=== PATIENT | male | born 1995 | race Caucasian/White ===

== ENCOUNTER 2023-04-24 13:35 | Outpatient (CLI) | payer BC | END 2023-04-24 13:36 | disposition home or self-care (01) | LOC: CSHMRI 13:35 | PROVIDERS: ATTEND Nurse Practitioner Family | DX: M54.14 Radiculopathy, thoracic region (principal); M54.16 Radiculopathy, lumbar region; Z98.1 Arthrodesis status | CPT/HCPCS: 72146; 72148 ==

== ENCOUNTER 2024-02-03 12:56 | Outpatient (CLI) | payer BC | END 2024-02-03 12:57 | disposition home or self-care (01) | LOC: CSHRAD 12:56 | PROVIDERS: ATTEND Nurse Practitioner Family | DX: M47.22 Other spondylosis with radiculopathy, cervical region (principal); M48.02 Spinal stenosis, cervical region; M48.03 Spinal stenosis, cervicothoracic region | CPT/HCPCS: 72141 ==

== ENCOUNTER 2024-08-02 09:26 | Outpatient (CLI) | payer BC | END 2024-08-02 09:27 | disposition home or self-care (01) | LOC: CSHSLEEP 09:26 | PROVIDERS: ATTEND Family Medicine | DX: G47.33 Obstructive sleep apnea (adult) (pediatric) (principal); G47.61 Periodic limb movement disorder | CPT/HCPCS: 95811 ==